=== PATIENT | male | born 1970 | race African-American/Black ===

== ENCOUNTER 2021-06-15 08:45 | Outpatient (CLI) | payer OTHER, SELFPAY ==
--- NOTE | 2021-06-15 | ECG_ITS ---
Measurements Intervals [place] Rate: 56 P: 76 CT: 191 QRS: 39 QRSD: 90 T: 53 QT: 382 QTc: 371 Interpretive Statements SINUS BRADYCARDIA BASELINE WANDER- I, II, AVR, AVL, V1, V3-V6 BORDERLINE ECG Electronically Signed On 06-15-2021 10:26:47 AUDIT MACHINE OPERATOR by Nj Livingston D.O.
--- NOTE | ~2021-06-15 | XR_ITS ---
XR chest 2V DATE: 06/15/2021 10:29 INDICATION: Preoperative evaluation. Carpal tunnel syndrome. TECHNIQUE: 2 views COMPARISON: None FINDINGS: Normal heart size. No hilar or mediastinal enlargement. No pulmonary infiltrate or consolid ation, pleural effusion or pulmonary vascular congestion or pneumothorax is detected. Mild thoracic dextroscoliosis. Diffuse idiopathic skeletal hyperostosis of the thoracic spine. IMPRESSION: No active cardiopulmonary disease Mild dextroscoliosis and diffuse idiopathic skeletal hyperostosis of the thoracic spine Reviewed, dictated and finalized at location A. TENANCE ASSISTANT IMPRESSION: No active cardiopulmonary disease Mild dextroscoliosis and diffuse idiopathic skeletal hyperostosis of the thorac ic spine
[2021-06-15 09:39] LABS: Hematocrit 47.9 % (42.0-52.0); Hemoglobin 16.1 g/dL (14.0-18.0); Mean Corpuscular HGB Conc 33.6 g/dl (32-36); Mean Corpuscular Hemoglobin 33.1 pg (26-34); Mean Corpuscular Volume 98.6 fl (80-100); Mean Platelet Volume 10.6 fl (7.4-10.4); Platelet Count Result 173 k/mm3 (150-375); Red Blood Count 4.86 M/mm3 (4.6-6.20); Red Cell Distribution Width 13.6 % (11.5-14.5); White Blood Count 5.4 K/mm3 (4.5-10.0)
[2021-06-15 09:50] LABS: Alanine Aminotransferase 49 U/L (4-50); Alkaline Phosphatase 61 U/L (38-126); Anion Gap 9 mmol/L (8-16); Aspartate Amino Transferase 40 U/L (17-59); Blood Urea Nitrogen 17 mg/dL (9-20); Calcium 9.3 mg/dL (8.4-10.2); Carbon Dioxide 29 mmol/L (22-30); Chloride 101 mmol/L (98-107); Estimated Glomerular Filt Rate > 60; Glucose 103 mg/dL (65-110); Sodium 139 mmol/L (137-145)
== END 2021-06-15 08:46 | disposition home or self-care (01) ==
DX: Z01.818 Encounter for other preprocedural examination (principal); M41.84 Other forms of scoliosis, thoracic region; M48.14 Ankylosing hyperostosis [Forestier], thoracic region
CPT/HCPCS: 36415; 71046; 80053; 85027; 93005

== ENCOUNTER 2021-10-19 11:00 | Outpatient (RCR) | payer OTHER, SELFPAY ==
--- NOTE | 2021-09-21 13:40 | PTOPEVAL ---
PHYSICAL THERAPY EVLAUATION AND PLAN OF CARE 09-21-21 Thank you for referring Adam Rothman to [facility] for the diagnosis of s/p R THR. He is scheduled to be seen for therapy? 2 x/week for 4 weeks. Please review, sign, date and return this plan of care JANNIE. I agree with and certify that the following plan of care is medically necessary. Referring Physician Date Attending Provider: Cassy Mensah NP Past Medical History Source of Past Medical History Patient Neurological History Hx Neurological Disorders No Significant History Cardiovascular History Hx Cardiac Disorders No Significant History Respiratory History Hx Respiratory Disorders No Significant History Gastrointestinal History Hx Other Gastrointestinal Disorders Yes: lap band surgery Musculoskeletal History Hx Arthritis Yes: B hip OA, to have L hip replaced in future Hx Orthopedic Surgery Yes: this diagnosis R THR Endocrine History Hx Endocrine Disorders No Significant History Evaluation Information Diagnosis R THR Onset 09-13-21 Subjective Information since surgery, using wheeled Query Text:As Reported By Patient/ walker, have hip precautions Family and HEP from dr- supine: QS, ankle pumps, heel slide, sitting knee extension; could not do the SLR or hip abduction ones. 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 Hand Dominance Right Home Setting Home Type House Environmental Barriers Railing, Ascend Left,Stairs, Greater than 4 Mobility Assistive Devices (Used Last 3 Walker, Wheeled Months) Bathing Equipment Grab Bars Pain Assessment Timing of Pain Assessment Timing of Pain Assessment Assessment Pain Scale Pain Scale Used Numeric (1 - 10) Self Report Pain Assessment Right Hip(s) Reported Pain Level 3 Pain Description Dull Pain Frequency Acute,Continuous Other Pain Description bruised muscle Lowest Pain Intensity 3 Greatest Pain Intensity 3 Pain Aggravating Factors Sitting Pain Score Pain Score 3: Self Report Additional Pain Score Comments issues with sleeping, cannot get comfortable; previously slept on R side; now on L side with pillow between knees -- educated on pillow position from hip/ankles and pillow
--- NOTE | 2021-10-19 11:36 | PTOPEVAL ---
PHYSICAL THERAPY DISCHARGE 10-19-21 Refer to the clinical summary below, for his status today, compared to the initial evaluation. The PT goals were achieved; Discharge PT at this time. He is to continue with his home exercises and increasing his activity level as tolerated. Thank you for referring Adam Rothman to [facility].? Please review, sign, date and return this Discahrge report JANNIE. I agree with and certify that the following plan of care is medically necessary. Referring Physician Date Attending Provider: Cassy Mensah NP Subjective Information Adam reports: is active and Query Text:As Reported By Patient/ doing more around the house, Family is not doing heavy lifting; walking with the cane, but without the cane most of the time; hip stiff when wake up in the morning and with sitting and driving; feels like he is ready to go back to work--office tasks that he could do without any problems; is planning to have the other hip replaced soon; agrees to discharge from PT services . And to continue with his home exercises. Pain Assessment Pain Scale Used Numeric (1 - 10) Self Report Pain Assessment Right Hip(s) Reported Pain Level 0 Pain Description Aching Pain Frequency Chronic,Intermittent Lowest Pain Intensity 0 Greatest Pain Intensity 2 Pain Score Pain Score 0: Self Report Interventions Used Interventions Used By Clinicians Education,Exercise Pain Relief Interventions Used By Ice Patient Other Alleviating Interventions no pain meds, taking over the counter meds PRN for overall body ache/sore Gross Lower Extremity Range of Motion R hip to THR precautions, pt Comments able to state correctly; during session he did sit and lean forward, with > 90' hip flexion; reinforced with him the precautions, and to clarify with dr how long he must observe them; Gross Lower Extremity Strength functional strength testing R LE: - supine SLR x 30 reps; - side lying hip abduction to 20' x 30 reps - single leg standing R 12, 16
== END 2021-10-19 14:04 | disposition home or self-care (01) ==
LOC: ANHPT 11:00
PROVIDERS: Visit Provider Nurse Practitioner Family
DX: Z47.1 Aftercare following joint replacement surgery (principal); Z96.641 Presence of right artificial hip joint
CPT/HCPCS: 97014; 97110; 97112; 97116; 97161; 97530; G0283

== ENCOUNTER 2022-03-02 13:30 | Outpatient (RCR) | payer OTHER, SELFPAY ==
--- NOTE | 2022-02-09 09:44 | PTOPEVAL1 ---
Evaluation Information Assessment Status Evaluation Diagnosis s/p L THR Onset 01-24-22 Subjective Information Adam reports: used the walker for about one week after surgery, now using the cane; been doing supine leg exercises from before; have been watching and doing the hip precautions; Reported Pain Level Pain Score 3: Self Report Additional Pain Score Comments not taking any pain meds; do not sleep well in general- tend to sleep on his back, education for side lying on R with pillow between knees; feels like this L hip pain is different than the R hip pain--R was pain and L more sore and tender, over whole hip; Assessment PT Clinical Summary Adam is 2 weeks s/p L THR. He has had the other hip replaced and has started doing the previous exercises. 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 He reports decreased sitting and walking tolerances and overall hip soreness, that is different from what he had with the other hip surgery. He is using the cane and increasing his activity level at home. Reviewed THR precautions with him. With the evaluation, he has decreased strength of L hip and pain increases at anterior hip and groin areas, with supine SLR and hip abduction motions. He is motivated and plans to return to work Mar 08, after his follow up dr appointment. Skilled PT services are indicated to increase L hip strength, dynamic/gait balance, modalities to decrease pain and progression of HEP. Continue to follow the THR precautions during sessions. Plan of Care Interventions Electrical Stimulation,Gait Training,Hot Pack/Cold Pack,Manual Therapy,Neuro Re-education,Patient/ Caregiver Education,Therapeutic Activities, Therapeutic Exercise,Ultrasound PT Services Indicated Yes Treatment Frequency and 1-2x/wk for 4 weeks, depending upon his pain level Duration --2x/wk if do modalities These treatments will address the objective and functional deficits as defined above. The patient will be advanced safely and appropriately in order for the patient to progress towards his/her prior level of function. Additional exercises will be introduced and as well as a comprehensive home exercise program upon discharge, if needed, ?to ensure carryover of functional gains achieved in the clinic. This treatment plan has been reviewed and agreement upon by the patient.
--- NOTE | 2022-03-02 14:04 | PTOPDC ---
Assessment and note entered by Jaida Colon, PT Evaluation Information Assessment Status Discharge Diagnosis s/p L THR Onset 01-24-22 Subjective Information Adam reports: feels like leg is stronger and is not hurting as much; is more active at home, but still sits and rests as need to; feels like he is ready to go back to work; is doing the exercises at home; Reported Pain Level Pain Score Self Report Additional Pain Score Comments pain range of 0-1/10 L hip; little ache in lateral hip; pt reports tolerances: sitting hard chair 15 min and comfortable chair--sit as long as want to ; standing and activity/walking at home for 2 hours; no pain with palpation over anterior hip; is not taking any pain meds or using ice to ease pain, just sits down; reinforced use of ice PRN; Assessment PT Clinical Summary Adam has received 4 PT sessions, s/p L THR. Compared to the initial evaluation: pain rating has decreased from 3-5/10 to 0-1/10; does not have tenderness with palpation over anterior hip; reported sitting, activity levels are improved; functional strength of L hip has improved- but has some weakness of hip abduction, with slight limp with walking; supine hip abduction does cause him pain; 2 minutes walking distance increased by 30' and gait balance improved. He is independent with his home exercise program. Discharge PT services, goals were partially achieved. Plan of Care PT Services Indicated No
== END 2022-03-02 15:24 | disposition home or self-care (01) ==
LOC: ANHPT 13:30
PROVIDERS: PCP Orthopaedic Surgery; Visit Provider Orthopaedic Surgery
DX: Z47.1 Aftercare following joint replacement surgery (principal); M16.12 Unilateral primary osteoarthritis, left hip; Z96.642 Presence of left artificial hip joint
CPT/HCPCS: 97110; 97161; 97530

== ENCOUNTER 2023-01-15 06:49 | Emergency (ER) | payer OTHER, SELFPAY ==
--- NOTE | ~2023-01-15 | CT_ITS ---
EXAMINATION: CT abdomen pelvis w con DATE: 01/15/2023 07:49 INDICATION: Diffuse abdominal pain TECHNIQUE: Computed tomography (CT) of the abdomen and pelvis was performed with 100 mL Omnipaque-350 intravenous contrast. Automated exposure control and iterative reconstruction technique were employe d. The dose-length product was 700.29 mGy-cm. COMPARISON: None FINDINGS: Lung bases are clear. Heart size is normal. No pericardial or pleural effusion. Nonspecific 1.2 cm pe ripherally hyperdense, centrally isointense lesion in the dome of the liver. Gallbladder, spleen, nava creas, bilateral adrenal glands and kidneys are normal. There is prominent gastric wall thickening ne ar the gastroesophageal junction. A few nonspecific fluid-filled but not frankly dilated loops of sma ll bowel measuring up to 3.2 cm transition to decompressed small bowel in the lower pelvis. Moderate amount of stool scattered throughout the colon. Normal appendix. Portions of the bladder and prostate are obscured by dense metallic streak artifact from bilateral total hip arthroplasties. No free intr aperitoneal gas or fluid. No pathologically enlarged abdominal or pelvic lymphadenopathy. Mild lumbar and lower thoracic spondylosis. IMPRESSION: 1. Prominent gastric wall thickening near the gastroesophageal junction with appearance suggesting pr ior Denise fundoplication. Differential would include focal gastritis, peptic ulcer disease or malign basil. Correlate with surgical history. 2. A few fluid-filled but not frankly dilated loops of small bowel in the central abdomen transition to decompressed more distal small bowel in the lower pelvis and differential would include ileus or e giana/partial small bowel obstruction. 3. 1.2 cm peripherally hyperdense, centrally isodense lesion at the dome of the liver for which follo w-up pre and postcontrast MRI would be recommended. Reviewed, dictated and finalized at location A. IMPRESSION: 1. Prominent gastric wall thickening near the gastroesophageal junction with ap pearance suggesting prior Denise fundoplication. Differential would include foc al gastritis, peptic ulcer disease or malignancy. Correlate with surgical histo ry. 2. A few fluid-filled but not frankly dilated loops of small bowel in the centr al abdomen transition to decompressed more distal small bowel in the lower pelv is and differential would include ileus or early/partial small bowel obstructio n. 3. 1.2 cm peripherally hyperdense, centrally isodense lesion at the dome of the liver for which follow-up pre and postcontrast MRI would be recommended.
[2023-01-15 06:53] VITALS: BP 131/59; PULSE 67; RESP 20; TEMP 36.4; O2SAT 100
[2023-01-15 07:04] VITALS: BP 122/83; PULSE 63; RESP 15; O2SAT 100
[2023-01-15 07:12] LABS: Basophils Percent Auto 0.7 % (0.2-1.2); Eosinophils Absolute Auto 0.1 K/mm3 (0-0.3); Eosinophils Percent Auto 1.7 % (0-4.4); Hematocrit 48.9 % (42.0-52.0); Hemoglobin 16.5 g/dL (14.0-18.0); Immature Granulocyte Absolute 0.02 K/mm3 (0.00-0.031); Immature Granulocyte Percent A 0.3 % (0-0.5); Lymphocytes Absolute Auto 1.76 K/mm3 (0.9-3.2); Lymphocytes Percent Auto 29.8 % (18.3-44.2); Mean Corpuscular HGB Conc 33.7 g/dl (32-36); Mean Corpuscular Hemoglobin 32.9 pg (26-34); Mean Corpuscular Volume 97.4 fl (80-100); Mean Platelet Volume 10.3 fl (7.4-10.4); Monocytes Absolute Auto 0.8 K/mm3 (0.1-0.6); Monocytes Percent Auto 13.6 % (2.6-8.5); Neutrophils Absolute Auto 3.2 K/mm3 (1.3-6.7); Neutrophils Percent Auto 53.9 % (45.5-73.1); Platelet Count Result 195 k/mm3 (150-375); Red Blood Count 5.02 M/mm3 (4.6-6.20); Red Cell Distribution Width 13.8 % (11.5-14.5); White Blood Count 5.9 K/mm3 (4.5-10.0)
[2023-01-15 07:16] VITALS: BP 136/82; PULSE 60; RESP 9; O2SAT 100
--- NOTE | 2023-01-15 07:18 | ED.ABDPAIN ---
HPI - Abdominal Pain General Chief Complaint: Abdominal Pain Stated Complaint: abd pain Time Seen by Provider: 01/15/23 06:57 History of Present Illness HPI narrative: 52-year-old male presenting to the emergency department for evaluation of diffuse abdominal pain. Patient reports he woke up at approximately 3 AM with onset of diffuse abdominal pain. Patient states the pain is intermittent and does radiate through his abdomen. Patient denies any associated chest pain shortness of breath and denies any radiation of the pain to his back. Patient does report a prior surgical history of a lap band. Patient denies any prior history of cholecystectomy or appendectomy. Patient does report history of constipation. Related Data Allergies Allergy/AdvReac Type Severity Reaction Status Date / Time No Known Allergies Allergy Verified 01/15/23 15:29 Review of Systems Review of Systems: All systems reviewed & are unremarkable except as noted in HPI and below Exam Narrative: APPEARANCE: Uncomfortable appearing HEAD: normocephalic, atraumatic. EYES: PERRLA/EOMI, conjunctivae clear. NOSE: Normal no drainage EARS:TMS clear with good light reflex. THROAT: Pharynx clear, no exudate. NECK: Supple. No adenopathy, no masses. RESPIRATORY: Airway patent, respirations nonlabored. Clear to auscultation bilaterally, no rales, rhonchi, wheezing. CARDIOVASCULAR: Regular rate and rhythm without murmurs rubs or gallops. ABDOMINAL: Soft, diffuse tenderness to palpation MUSCULOSKELETAL: Moves all extremities. Strength/ROM intact, No edema, No calf tenderness. NEURO: Alert. Cranial nerves II through XII intact. Grossly intact SKIN: Warm, dry. Normal Color Course Course Emergency Course: 52-year-old male presented emergency department for evaluation of diffuse abdominal pain. Baseline labs were ordered along with a CT scan. Patient was afebrile with no leukocytosis and a stable hemoglobin. His scan did show evidence of gastritis but also showed evidence of an ileus versus early small bowel obstruction. Patient was offered admission for the early small bowel obstruction but patient prefers to be discharged to home. Patient will be started on omeprazole for the gastritis and provided Bentyl and Zofran and recommended a clear liquid diet for the ileus versus early small bowel obstruction. Patient was educated on reasons to return to the emergency department. All questions concerns were addressed. Vital Signs Vital signs: Vital Signs Temperature 97.5 F L 01/15/23 06:53 Pulse Rate 67 01/15/23 06:53 Respiratory Rate 20 01/15/23 06:53 Blood Pressure 131/59 L 01/15/23 06:53 Pulse Oximetry 100 01/15/23 06:53 Oxygen Delivery Room Air 01/15/23 06:53 Temperature 97.5 F L 01/15/23 06:53 Pulse Rate 60 01/15/23 08:40 Respiratory Rate 16 01/15/23 08:40 Blood Pressure 125/89 01/15/23 08:40 Pulse Oximetry 100 01/15/23 08:40 Oxygen Delivery Room Air 01/15/23 06:53 MDM - Abdominal Pain Differential Diagnosis Differential diagnosis: Likely abdominal pain, constipation, diverticulitis, gastroenteritis, pancreatitis and small bowel obstruction Lab Data Attestation: I reviewed the patient's lab results. 01/15/23 07:05 01/15/23 07:05 Labs: Lab Results 01/15/23 Range/Units 07:05 WBC 5.9 (4.5-10.0) K/mm3 RBC 5.02 (4.6-6.20) M/mm3 Hgb 16.5 (14.0-18.0) g/dL Hct 48.9 (42.0-52.0) % MCV 97.4 (80-100) fl MCH 32.9 (26-34) pg MCHC 33.7 (32-36) g/dl RDW 13.8 (11.5-14.5) % Plt Count 195 (150-375) k/mm3 MPV 10.3 (7.4-10.4) fl Immature Gran % (Auto) 0.3 (0-0.5) % Neut % (Auto) 53.9 (45.5-73.1) % Lymph % (Auto) 29.8 (18.3-44.2) % [place] % (Auto) 13.6 H (2.6-8.5) % Eos % (Auto) 1.7 (0-4.4) % Baso % (Auto) 0.7 (0.2-1.2) % Lymph # (Auto) 1.76 (0.9-3.2) K/mm3 [place] # (Auto) 0.8 H (0.1-0.6) K/mm3 Eos # (Auto) 0.1 (0-0.3) K/mm3 Baso # (Auto)
[2023-01-15 07:19] LABS: Alanine Aminotransferase 23 U/L (6-50); Albumin Level 3.9 g/dL (3.5-5.1); Alkaline Phosphatase 66 U/L (38-126); Anion Gap 2 mmol/L (8-16); Aspartate Amino Transferase 24 U/L (17-59); Bilirubin,Total 0.6 mg/dL (0.2-1.3); Blood Urea Nitrogen 16 mg/dL (9-20); Calcium 9.3 mg/dL (8.4-10.2); Carbon Dioxide 29 mmol/L (22-30); Chloride 104 mmol/L (98-107); Estimated CRCL calculation 68 ml/min; Estimated Glomerular Filt Rate > 60; Glucose 129 mg/dL (65-110); Lipase 81 U/L (23-300); Potassium 4.2 mmol/L (3.4-5.0); Sodium 135 mmol/L (137-145)
[2023-01-15] MEDS: ONDANSETRON INJ 4 MG/2 ML VIAL IV PUSH (07:28)
[2023-01-15] MEDS: SODIUM CHLORIDE 0.9% IV 1,000 ML 999 ML IV CONT (07:28)
[2023-01-15] MEDS: HYDROmorphone HCL INJ (*CRX) 1 MG/ML SYR 0.5 MG IV PUSH (07:29)
[2023-01-15 07:31] VITALS: BP 129/80; PULSE 60; RESP 11; O2SAT 100
[2023-01-15] MEDS: DICYCLOMINE HCL 10 MG CAPSULE PO (08:34)
[2023-01-15 08:40] VITALS: BP 125/89; PULSE 60; RESP 16; O2SAT 100
== END 2023-01-15 08:40 | disposition home or self-care (01) ==
PROVIDERS: Emergency Provider Emergency Medicine; PCP Family Medicine
DX: K29.70 Gastritis, unspecified, without bleeding (principal); K56.7 Ileus, unspecified; Z98.84 Bariatric surgery status; K76.9 Liver disease, unspecified
CPT/HCPCS: 36415; 74177; 80053; 83690; 85025; 96361; 96374; 96375; 99284; A9270; J1170; J2405; J7030; Q9967

== ENCOUNTER 2023-01-15 15:23 | Emergency (ER) | payer OTHER, SELFPAY ==
[2023-01-15] VITALS (7 sets, daily range): BP systolic 153–160; BP diastolic 85–93; PULSE 57–73; RESP 13–21; TEMP 36.8; O2SAT 100
--- NOTE | ~2023-01-15 | XR_ITS ---
EXAMINATION: XR abdomen obstructive series DATE: 01/15/2023 16:02 INDICATION: Ileus versus obstruction with medial abdominal pain TECHNIQUE: Frontal supine and upright views of the abdomen were obtained. COMPARISON: CT dated 01/15/2023 FINDINGS: Air-fluid levels within multiple loops of small bowel which are at the upper limits of normal in diam eter. No pneumatosis or free intraperitoneal gas. Excreted contrast in the bladder related to the ear lier contrast-enhanced CT. Lung bases are clear. Bilateral total hip arthroplasties. IMPRESSION: 1. Air-fluid levels within multiple loops of small bowel which at the upper limits of normal in yenifer zhanna which could represent either an ileus or early/partial small bowel obstruction. Reviewed, dictated and finalized at location A. IMPRESSION: 1. Air-fluid levels within multiple loops of small bowel which at the upper li mits of normal in caliber which could represent either an ileus or early/partia l small bowel obstruction.
[2023-01-15 15:48] LABS: Basophils Percent Auto 0.4 % (0.2-1.2); Eosinophils Percent Auto 0.1 % (0-4.4); Hematocrit 49.8 % (42.0-52.0); Hemoglobin 17.2 g/dL (14.0-18.0); Immature Granulocyte Absolute 0.02 K/mm3 (0.00-0.031); Immature Granulocyte Percent A 0.2 % (0-0.5); Lymphocytes Absolute Auto 0.65 K/mm3 (0.9-3.2); Lymphocytes Percent Auto 7.7 % (18.3-44.2); Mean Corpuscular HGB Conc 34.5 g/dl (32-36); Mean Corpuscular Volume 95.4 fl (80-100); Mean Platelet Volume 10.6 fl (7.4-10.4); Monocytes Absolute Auto 0.4 K/mm3 (0.1-0.6); Monocytes Percent Auto 4.8 % (2.6-8.5); Neutrophils Absolute Auto 7.4 K/mm3 (1.3-6.7); Neutrophils Percent Auto 86.8 % (45.5-73.1); Platelet Count Result 195 k/mm3 (150-375); Red Blood Count 5.22 M/mm3 (4.6-6.20); Red Cell Distribution Width 13.6 % (11.5-14.5); White Blood Count 8.5 K/mm3 (4.5-10.0)
--- NOTE | 2023-01-15 15:55 | ED.GENADULT ---
HPI - General Adult General Chief complaint: Abdominal Pain Stated complaint: Abdominal pain Time Seen by Provider: 01/15/23 15:32 History of Present Illness HPI narrative: 52-year-old male history of Denise fundoplication and lap band surgery done approximately 10 years ago in the [facility] system presented the emergency department for evaluation of nausea and abdominal pain. Patient was seen in the emergency department earlier today and was diagnosed with possible gastritis and an early small bowel obstruction. At that time patient was offered admission but patient preferred to go home. Patient had worsening symptoms so he presented to the emergency department for evaluation. Case was discussed with the surgeon on-call surgeon recommended transfer to the [facility] system. Related Data Allergies Allergy/AdvReac Type Severity Reaction Status Date / Time No Known Allergies Allergy Verified 01/15/23 15:29 Review of Systems Review of Systems: All systems reviewed & are unremarkable except as noted in HPI and below Exam Narrative: APPEARANCE: Well appearing, no pain, no distress, well-nourished. HEAD: normocephalic, atraumatic. EYES: PERRLA/EOMI, conjunctivae clear. NOSE: Normal no drainage NECK: Supple. No adenopathy, no masses. RESPIRATORY: Airway patent, respirations nonlabored. Clear to auscultation bilaterally, no rales, rhonchi, wheezing. CARDIOVASCULAR: Regular rate and rhythm without murmurs rubs or gallops. ABDOMINAL: Diffuse abdominal tenderness MUSCULOSKELETAL: Moves all extremities. Strength/ROM intact, No edema, No calf tenderness. NEURO: Alert. Cranial nerves II through XII intact. Good gait. Good coordination SKIN: Warm, dry. Normal Color PSYCHIATRIC: Normal affect/mood. Course Course Emergency Course: 52-year-old male presented the ED for evaluation of worsening GI symptoms. Discussed the case with general surgery here at [place] and he felt more comfortable with the patient being transferred back to the [facility] system if a complication develop. System was paged. Patient was updated on the plan for transfer. Case discussed with Dr. Loaiza and the hospitalist at [facility]. Patient was excepted for transfer. Patient was stable at time of transfer. Vital Signs Vital signs: Vital Signs Pulse Rate 69 01/15/23 15:32 Respiratory Rate 17 01/15/23 15:32 Pulse Oximetry 100 01/15/23 15:32 Temperature 98.2 F 01/15/23 15:34 Pulse Rate 57 L 01/15/23 17:50 Respiratory Rate 15 01/15/23 17:50 Blood Pressure 153/86 H 01/15/23 17:50 Pulse Oximetry 100 01/15/23 17:50 Medical Decision Making Vital Signs Vital Signs: Vital Signs Pulse Rate 69 01/15/23 15:32 Respiratory Rate 17 01/15/23 15:32 Pulse Oximetry 100 01/15/23 15:32 Temperature 98.2 F 01/15/23 15:34 Pulse Rate 57 L 01/15/23 17:50 Respiratory Rate 15 01/15/23 17:50 Blood Pressure 153/86 H 01/15/23 17:50 Pulse Oximetry 100 01/15/23 17:50 Lab Data Lab results reviewed: Yes I reviewed the patient's lab results. 01/15/23 15:42 01/15/23 15:42 Labs: Lab Results 01/15/23 01/15/23 Range/Units 15:42 16:25 WBC 8.5 (4.5-10.0) K/mm3 RBC 5.22 (4.6-6.20) M/mm3 Hgb 17.2 (14.0-18.0) g/dL Hct 49.8 (42.0-52.0) % MCV 95.4 (80-100) fl MCH 33.0 (26-34) pg MCHC 34.5 (32-36) g/dl RDW 13.6 (11.5-14.5) % Plt Count 195 (150-375) k/mm3 MPV 10.6 H (7.4-10.4) fl Immature Gran % (Auto) 0.2 (0-0.5) % Neut % (Auto) 86.8 H (45.5-73.1) % Lymph % (Auto) 7.7 L (18.3-44.2) % [place] % (Auto) 4.8 (2.6-8.5) % Eos % (Auto) 0.1 (0-4.4) % Baso % (Auto) 0.4 (0.2-1.2) % Lymph # (Auto) 0.65 L (0.9-3.2) K/mm3 [place] # (Auto) 0.4 (0.1-0.6) K/mm3 Eos # (Auto) 0.0 (0-0.3) K/mm3 Baso # (Auto) 0.0 (0.0-0.1) K/mm3 Abs Immat Gran (auto) 0.02 (0.00-0.031) K/mm3 Absolute Neuts (auto) 7.4 H (1.3-6.7) K/mm3 Absolute Nucleated RBC
[2023-01-15 15:59] LABS: Alanine Aminotransferase 23 U/L (6-50); Albumin Level 4.3 g/dL (3.5-5.1); Alkaline Phosphatase 78 U/L (38-126); Anion Gap 6 mmol/L (8-16); Aspartate Amino Transferase 24 U/L (17-59); Bilirubin,Total 1.2 mg/dL (0.2-1.3); Blood Urea Nitrogen 12 mg/dL (9-20); Calcium 9.5 mg/dL (8.4-10.2); Carbon Dioxide 30 mmol/L (22-30); Chloride 101 mmol/L (98-107); Estimated CRCL calculation 91 ml/min; Estimated Glomerular Filt Rate > 60; Glucose 118 mg/dL (65-110); Potassium 4.3 mmol/L (3.4-5.0); Sodium 137 mmol/L (137-145)
[2023-01-15] MEDS: SODIUM CHLORIDE 0.9% IV 1,000 ML 999 ML IV CONT (16:25)
[2023-01-15] MEDS: HYDROmorphone HCL INJ (*CRX) 1 MG/ML SYR IV PUSH (16:26)
[2023-01-15] MEDS: ONDANSETRON INJ 4 MG/2 ML VIAL IV PUSH (16:27)
[2023-01-15 17:03] LABS: Lactic Acid Reflex 1.2 mmol/L (0.7-2.0)
[2023-01-15] MEDS: MORPHINE SULFATE (*CRX) 4 MG/ML INJ IV PUSH (17:09)
--- NOTE | 2023-01-15 17:20 | PC.NURSE ---
Report called to Rachele NAVARRO at [facility] for transfer. all questions answered at this time.
== END 2023-01-15 17:52 | disposition short-term general hospital (02) ==
PROVIDERS: Emergency Provider Emergency Medicine; PCP Family Medicine
DX: K56.609 Unspecified intestinal obstruction, unspecified as to partial versus complete obstruction (principal); Z98.84 Bariatric surgery status
CPT/HCPCS: 36415; 74019; 80053; 83605; 85025; 96361; 96374; 96375; 99285; J1170; J2270; J2405; J7030

== ENCOUNTER 2023-02-07 12:30 | Outpatient (CLI) | payer OTHER, SELFPAY ==
--- NOTE | ~2023-02-07 | MR_ITS ---
MRI of the abdomen: Clinical indication: Hemangioma. Technique: Coronal SSFSE ARC, WATER:coronal LAVA-FLEX, Coronal 2D FIESTA FatSat, Axial SSFSE BH ARC, Axial 3D DualEcho BH, Axial SSFSE-IR, Axial DWI b=500, Axial 2D FIESTA FatSat, pre and dynamic postco ntrast Axial LAVA ARC, postcontrast Coronal In and Opposed phase LAVA FLEX. Following intravenous adm inistration of 18 cc MultiHance gadolinium, T1-weighted fat-sat imaging was performed in the axial an d coronal planes. COMPARISON: CT scan dated 01/15/2023 Findings: Gallbladder is unremarkable. The common bile duct is normal in course and caliber. No filli ng defects are seen within the CBD. No evidence of intrahepatic biliary ductal dilatation. The pancre atic duct is normal in size. There is a 1.1 cm lesion at the dome of the liver which corresponds with the prior CT finding. This l esion is markedly T2 hyperintense, T1 hypointense, and displays probable focal peripheral nodular enh ancement with progressive fill in over time. Appearance is most compatible with small hemangioma. Spleen, pancreas, adrenals, kidneys appear normal. The aorta and the paraaortic regions appear normal . Impression: 1.1 cm lesion at the dome of liver is most consistent with small hemangioma. Reviewed, dictated and finalized at [facility]. Impression: 1.1 cm lesion at the dome of liver is most consistent with small hemangioma.
== END 2023-02-07 12:31 | disposition home or self-care (01) ==
PROVIDERS: PCP Family Medicine; Visit Provider Family Medicine
DX: D18.03 Hemangioma of intra-abdominal structures (principal); K76.9 Liver disease, unspecified; R93.2 Abnormal findings on diagnostic imaging of liver and biliary tract
CPT/HCPCS: 74183; A9577

== ENCOUNTER 2025-03-18 12:48 | Outpatient (CLI) | payer OTHER, SELFPAY ==
--- NOTE | ~2025-03-18 | MR_ITS ---
EXAMINATION: MR shoulder RT wo con DATE: 03/18/2025 13:52 INDICATION: Right shoulder pain TECHNIQUE: Magnetic resonance imaging (MRI) of the right shoulder was performed without intravenous contrast. Sequences included axial PD-weighted FS FSE, coronal oblique PD-weighted FS FSE, coronal oblique T2-weighted FS FSE, sagittal PD-weighted FS FSE, and sagittal T1-weighted SE. COMPARISON: None. FINDINGS: Coracoacromial arch: The acromion undersurface is flat in morphology (type I) with moderate-sized anterior and small lateral subacromial spurs. The coracoacromial ligament is normal. Mild acromioclavicular osteoarthritis with small inferiorly directed osteophytes. Rotator cuff: Mild supraspinatus and infraspinatus tendinopathy. Very small articular sided tear at the greater tuberosity footplate of the conjoined portion of the supraspinatus and infraspinatus tendons which measures 6 mm AP and involving no greater than than one third of the tendon thickness with no significant medial retraction. There is a second tiny intrasubstance longitudinal split tear extending 11 mm proximal to distally along the intact surrounding the ligament fibers of the distal anterior infraspinatus tendon. Mild subscapularis tendinopathy with additional tiny intrasubstance tear at the central lesser tuberosity footplate. The subscapularis tendon. The teres minor tendon is normal. Normal rotator cuff muscle bulk and signal. Biceps tendon, glenoid labrum and glenohumeral cartilage: Long head of the biceps tendon is normal. Mild thickening and amorphous increased signal at the 9:30-10:30 position of the posterior superior glenoid labrum consistent with degenerative tearing. Additional mild degenerative tearing with mild amorphous intrasubstance increased signal at the 12:00-1:00 p osition of the anterosuperior glenoid labrum. Finally there is prominent thickening and amorphous increased signal at the anteroinferior labrum beginning at the 5:00 position and extending inferiorly and posteriorly to the 6:00 position. There are some partial-thickness chondral fissuring at the josé luis inferior glenoid with 12 x 9.9 mm degenerative subchondral cyst underlying the anteroinferior glenoid. A few additional significant smaller degenerative subchondral cysts at the central aspect of the glenoid. Deep partial thickness chondral ulceration along the superior rim of the glenoid and at the betancourt peromedial aspect of the humeral head, both without degenerative subchondral changes. Fluid: Physiologic amount of fluid in the glenohumeral joint and biceps tendon sheath. No loose osteochondral bodies. Mild increased fluid signal in the subacromial/subdeltoid bursa consistent with minimal bursitis. Bones: Bone alignment is normal. No fracture or pathologic marrow replacing process. Prominent cystic changes along the superior facet of the greater tuberosity and to lesser degree at the lesser tuberosity consistent with chronic rotator cuff disease. IMPRESSION: 1. Mild glenohumeral osteoarthritis with scattered labral degeneration most prominent anteroinferiorly where there is high-grade chondromalacia with prominent subarticular cystlike changes at the anteroinferior glenoid. 2. Mild subscapularis, supraspinatus and infraspinatus tendinopathy with very small, mild articular sided tear at the superior facet footplate of the conjoined supraspinatus and infraspinatus tendons and tiny intrasubstance tears of the distal infraspinatus and subscapularis tendons. 3. Mild acromioclavicular osteoarthritis with minimal subacromial/subdeltoid bursitis. Reviewed, dictated and finalized at location A. IMPRESSION: 1. Mild glenohumeral osteoarthritis with scattered labral degeneration most pro minent anteroinferiorly where there is high-grade chondromalacia with prominent subarticular cystlike changes at the anteroinferior glenoid. 2. Mild subscapularis, supraspinatus and infraspinatus tendinopathy with very s mall, mild articular sided tear at the superior facet footplate of the conjoine d supraspinatus and infraspinatus tendons and tiny intrasubstance tears of the distal infraspinatus and subscapularis tendons. 3. Mild acromioclavicular osteoarthritis with minimal subacromial/subdeltoid bu rsitis.
== END 2025-03-18 12:49 | disposition home or self-care (01) ==
LOC: MICIMG 12:49
PROVIDERS: PCP Family Medicine
DX: M19.011 Primary osteoarthritis, right shoulder (principal)
CPT/HCPCS: 73221